=== PATIENT | female | born 1995 | race Caucasian/White ===

== ENCOUNTER 2018-11-21 17:43 | Emergency (ER) | payer OTHER ==
[~2018-11-21] VITALS: Ht 160 cm; Wt 59.0 kg
[2018-11-21 17:53] VITALS: BP 114/76
[2018-11-21] MEDS ORDERED: MULTIPLE VITAM1 EAC6 PO (17:57)
--- NOTE | 2018-11-21 18:03 | NUR ---
ED Nurse Note: Pt walked in due to allergic reaction after eating ramen noodles 1999 yesterday. Pt acquired generalized body rashes, erythema and itching. Denies SOB. AAO x,4 ambulatory with unlabored breathing. Pt took loratadine 10mg.
--- NOTE | 2018-11-21 18:13 | NUR ---
ED Nurse Note: Pt states that she is going to drive after discharge. Dr Ross is aware.
[2018-11-21] MEDS ORDERED: Lidocaine 1% MPF 10mg/ml 5ml INJ ONE (18:45)
[2018-11-21] MEDS ORDERED: Azithromycin 250mg tab ORAL ONE (18:45)
[2018-11-21] MEDS ORDERED: PREDNISONE20 MG ORAL (18:51)
[2018-11-21] MEDS ORDERED: DIPHENHYDRAMINE25 M1 ORAL (18:51)
--- NOTE | 2018-11-21 18:58 | NUR ---
ER DISCHARGE NOTE: Patient is cleared to be discharged per ERMD, pt is aox4, on room air, with stable vital signs. pt was given dc and prescription instructions, pt was able to verbalize understanding, pt id band removed without complications. pt is able to ambulate with steady gait. pt took all belongings.
--- NOTE | 2018-11-21 23:34 | Emergency Room Report ---
History of Present Illness General Chief Complaint: Allergic Reaction Source: Patient Present Illness HPI 23-year-old female presents ED for evaluation. Complaining of rash to arms legs chest and abdomen x1 day. States it feels itchy. Possibly related to food. Denies any known food or drug allergies. Took loratadine without significant relief. Denies tongue swelling or throat swelling. Denies shortness of breath. No other aggravating relieving factors. Denies any other associated symptoms Allergies: Coded Allergies: No Known Allergies (Unverified , 11/21/18) Patient History Past Medical History: none Past Surgical History: none Pertinent Family History: none Social History: Denies: smoking, alcohol use, drug use Last Menstrual Period: 11/19/2018 Now: No Immunizations: UTD Reviewed Nursing Documentation: PMH: Agreed; PSxH: Agreed Nursing Documentation-PMH Past Medical History: No History, Except For Review of Systems All Other Systems: negative except mentioned in HPI Physical Exam Vital Signs Date Time Temp Pulse Resp B/P (MAP) Pulse Ox O2 Delivery O2 Flow Rate FiO2 11/21/18 17:53 98.2 70 16 114/76 (89) 97 Room Air Sp02 EP Interpretation: reviewed, normal General Appearance: no apparent distress, alert, GCS 15, non-toxic Head: normocephalic Eyes: bilateral eye normal inspection, bilateral eye PERRL ENT: hearing grossly normal, normal pharynx, no angioedema, normal voice Neck: full range of motion, supple, no meningismus, supple/symm/no masses Respiratory: chest non-tender, lungs clear, normal breath sounds, speaking full sentences Cardiovascular #1: normal inspection Gastrointestinal: normal inspection Rectal: deferred Genitourinary: no CVA tenderness Musculoskeletal: normal inspection Neurologic: alert, oriented x3, responsive, motor strength/tone normal, sensory intact, speech normal Psychiatric: normal inspection Skin: rash - diffuse urticaria to chset, arms, legs, abdomen. nonerthematous base Lymphatic: normal inspection Medical Decision Making Diagnostic Impression: Primary Impression: Allergic reaction Qualified Codes: T78.40XA - Allergy, unspecified, initial encounter ER Course Hospital Course 23 yo F presents with urticarial rash after eating food. no tongue swelling, SOB. Differential diagnoses include: allergic reaction, angioedema, anaphylaxis Clinical course Patient placed on stretcher. coffee taster. After initial history, physical exam reveals a female in no acute distress. There is diffuse urticarial rash to arms, legs, abdomen and chest. None erythematous base. No stridor. No tongue swelling. Lungs clear. I discussed findings with patient. Given prednisone and Benadryl here. Will discharge with medication. Safe for discharge for close outpatient follow-up. Recommend outpatient follow-up with dragsaw operator. i. I feel this is a highly complex case requiring extensive working including EKG/Rhythm strip, Xray/CT/US, Blood/urine lab work, repeat exams while in ED, and administration of strong opiates/narcotics for pain control, admission to hospital or close patient follow up. Diagnosis - allergic reaction Stable and discharged to home with prescriptions for prednisone, Benadryl. Followup with PMD. Return to ED if symptoms recur or worsen Last Vital Signs Date Time Temp Pulse Resp B/P (MAP) Pulse Ox O2 Delivery O2 Flow Rate FiO2 11/21/18 18:58 97.9 75 16 128/70 98 Room Air Status: improved Disposition: HOME, SELF-CARE Condition: Stable Scripts Prednisone* (PREDNISONE*) 20 Mg Tablet 40 MG ORAL DAILY for 5 Days, #10 TAB Prov: Celio Ross MD 11/21/18 Diphenhydramine Hcl* (DIPHENHYDRAMINE HCL*) 25 Mg Capsule 25 MG ORAL Q6H PRN for Itching for 5 Days, #30 CAP 0 Refills Prov: Celio Ross MD 11/21/18 Referrals: [facility],REFERRING (PCP) [facility] Patient Instructions: Alexys, [id number] Celio Ross MD Nov 21, 2018 23:34
== END 2018-11-21 18:58 | disposition home or self-care (01) ==
LOC: EDBD 17:43 → EMR 18:17
DX: T78.40XA Allergy, unspecified, initial encounter (principal); X58.XXXA Exposure to other specified factors, initial encounter
CPT/HCPCS: 96372; 99283; J7512

== ENCOUNTER 2019-07-26 02:12 | Emergency (ER) | payer OTHER ==
[~2019-07-26] VITALS: Ht 167.6 cm; Wt 59.0 kg
[~2019-07-26 02:12] MED LIST: DIPHENHYDRAMINE25 M1 ORAL; MULTIPLE VITAM1 EAC6 PO; PREDNISONE20 MG ORAL
[2019-07-26 02:22] VITALS: BP 117/77
--- NOTE | 2019-07-26 02:22 | NUR ---
ED Nurse Note: pt ambulated into ed from home CO injury to left pinky. Pt stated that she was losing a cabinet and closed the cabinet door on finger. Pt states pain 10/10, ROM in finger approx 75%, pt denies pain radiating to other areas of hand, pt denies tinging or numbness. Pt finger appears swollen and bruised. Pt states that when she tries to move or flex finger, it feels stiff with pressure. Awaiting ERMD at bedside. Pt aao x 4 with steady gait.
--- NOTE | 2019-07-26 02:29 | NUR ---
ED Nurse Note: ERMD at bedside
--- NOTE | 2019-07-26 02:30 | NUR ---
ED Nurse Note: finishing lab technician notified of pending xray per ERMD
--- NOTE | 2019-07-26 02:37 | NUR ---
ED Nurse Note: all medications administered, pt tolerated well. no ss of distress noted. no adverse reactions noted. will continue to monitor
--- NOTE | 2019-07-26 02:38 | NUR ---
ED Nurse Note: xray at bedside
--- NOTE | 2019-07-26 02:45 | NUR ---
ED Nurse Note: xray left bedside
[2019-07-26] MEDS ORDERED: IBUPROFEN600 M1 ORAL (02:51)
--- NOTE | 2019-07-26 02:56 | Emergency Room Report ---
History of Present Illness General Chief Complaint: Upper Extremity Injury Source: Patient Present Illness HPI Disclaimer: Please note that this report is being documented using [employer] technology. This can lead to erroneous entry secondary to incorrect interpretation by the dictating instrument. HPI: 24-year-old female presents for right fifth finger pain. Pain is been present for the past 30 minutes after slamming her finger in a door. Pain 10 out of 10 worse with palpation and movement and nonradiating. PMH: None PSH: Reviewed Social Hx: Denies smoking drinking or illicit drug use Allergies: Coded Allergies: No Known Allergies (Unverified , 11/21/18) COVID-19 Screening Contact w/high risk pt: No Recent Travel to affected area: No Experienced COVID-19 symptoms?: No Patient History Last Menstrual Period: 07/19/19 Nursing Documentation-PMH Past Medical History: No History, Except For Review of Systems All Other Systems: negative except mentioned in HPI Physical Exam Vital Signs Date Time Temp Pulse Resp B/P (MAP) Pulse Ox O2 Delivery O2 Flow Rate FiO2 07/26/19 02:15 98.2 82 18 117/77 (90) 99 Room Air Sp02 EP Interpretation: reviewed, normal General Appearance: well appearing, no apparent distress Head: normocephalic, atraumatic Eyes: bilateral eye PERRL, bilateral eye EOMI ENT: hearing grossly normal, moist mucus membranes Neck: full range of motion, supple Respiratory: lungs clear, normal breath sounds, no rhonchi, no respiratory distress, no retraction, no wheezing Cardiovascular #1: normal peripheral pulses, regular rate, rhythm, no murmur Gastrointestinal: non tender, soft, non-distended, no guarding Musculoskeletal: other - Right fifth finger bruising noted no deformity sensation and motor intact Neurologic: alert, oriented x3, no focal defects Skin: normal color, warm/dry Medical Decision Making Diagnostic Impression: Primary Impression: Finger contusion ER Course Patient presented with right fifth finger pain. Suspect contusion, less likely fracture or dislocation. Bruising noted to the finger. Ibuprofen given. Otherwise neurovascularly intact. X-ray ordered and showed no acute fracture dislocation. Will discharge with analgesics, and a splint. And follow-up PMD. Other X-Ray Diagnostic Results Other X-Ray Diagnostic Results : # of Views/Limited Vs Complete: 2 View Indication: Pain EP Interpretation: Yes Interpretation: no dislocation, no fractures Impression: No acute disease Electronically Signed by: Kasi Chan MD Last Vital Signs Date Time Temp Pulse Resp B/P (MAP) Pulse Ox O2 Delivery O2 Flow Rate FiO2 07/26/19 02:22 98.2 82 18 117/77 99 Room Air Status: improved Disposition: HOME, SELF-CARE Condition: Stable Scripts Ibuprofen* (MOTRIN*) 600 Mg Tablet 600 MG ORAL Q6H PRN for FOR PAIN, #20 TAB 0 Refills Prov: Kasi Chan M.D. 07/26/19 Referrals: [facility] Patient Instructions: Hematoma, [id number] Additional Instructions: Patient is instructed to follow-up with her primary care doctor, primary care clinic or [facility] in 1 to 2 days. Patient instructed to return for any worsening symptoms or concerns. Disclaimer: Please note that this report is being documented using [employer] technology. This can lead to erroneous entry secondary to incorrect interpretation by the dictating instrument. Kasi Chan M.D. July 26, 2019 02:56
--- NOTE | 2019-07-26 03:00 | NUR ---
ED Nurse Note: ERMD at bedside
[2019-07-26 03:05] VITALS: BP 115/75
--- NOTE | 2019-07-26 03:05 | NUR ---
ER DISCHARGE NOTE: Patient is cleared to be discharged home with finger splint per ERMD, pt is aox4, 98% on room air, with stable vital signs. pt was given dc and prescription instructions, pt was able to verbalize understanding, pt id band removed. pt is able to ambulate with steady gait. pt took all belongings.
--- NOTE | 2019-07-26 03:18 | Diagnostic Imaging Report ---
EXAM: XR Left Fingers, 4 Views CLINICAL HISTORY: PAIN TECHNIQUE: Frontal, lateral and oblique views of the fingers of the left hand. Images were centered over the left fifth digit. COMPARISON: No relevant prior studies available. FINDINGS: Bones/joints: No acute osseous or articular abnormality involving the left fifth digit. Sclerotic focus within the fourth proximal phalanx. No dislocation. Soft tissues: Unremarkable. No radiopaque foreign body. IMPRESSION: 1. No acute osseous or articular abnormality involving the left fifth digit. 2. Sclerotic focus within the fourth proximal phalanx. Consider nonemergent followup CT imaging.
== END 2019-07-26 03:05 | disposition home or self-care (01) ==
LOC: EMR 02:36
DX: S60.051A Contusion of right little finger without damage to nail, initial encounter (principal); W23.0XXA Caught, crushed, jammed, or pinched between moving objects, initial encounter; Y92.9 Unspecified place or not applicable
CPT/HCPCS: 29130; 99283